=== PATIENT | male | born 1965 | race Caucasian/White ===

== ENCOUNTER 2017-06-11 09:22 | Emergency (ER) | payer SELFPAY ==
[~2017-06-11] VITALS: Ht 175.3 cm; Wt 110.0 kg
[2017-06-11 09:27] VITALS: BP 228/107; PULSE 81; RESP 16; TEMP 98.8; O2SAT 98
[2017-06-11] MEDS ORDERED: cloNIDine HCL 0.1 MG TAB PO ONE (10:00)
[2017-06-11] MEDS ORDERED: IBUP-232 PO (10:46)
--- NOTE | 2017-06-11 10:56 | PD ---
HPI . sore throat Chief Complaint: ENT Complaint Time Seen by Provider: 09:39 Travel History International Travel<30 days: No Contact w/Intl Traveler<30days: No Traveled to known affect area: No History of Present Illness HPI 51-year-old male patient presents emergency department for evaluation of sore throat 3 weeks. Patient believes he might have had a fever on the first day that his throat hurt but has been afebrile subsequently. Patient denies any ear pain, chest pain, shortness breath, abdominal pain, nausea, vomiting, diarrhea. Patient has a history of hypertension. Patient doesn't take any daily medication. PFSH Past Medical History Cardiovascular Problems: Yes (htn) Social History Tobacco Use: Yes Allergies-Medications (Allergen,Severity, Reaction): Coded Allergies: No Known Allergies (Unverified Adverse Reaction, Unknown, 06/11/17) Reported Meds & Prescriptions Reported Meds & Active Scripts Active Ibuprofen 600 Mg Tab 600 Mg PO Q8H PRN Review of Systems Except as stated in HPI: all other systems reviewed are Neg Physical Exam Narrative GENERAL: Well-nourished, well-developed 51-year-old male patient. SKIN: Focused skin assessment warm/dry. HEAD: Normocephalic. Atraumatic. EYES: No scleral icterus. No injection or drainage. ENT: Mucosa pink and moist. No erythema or exudates. No uvular edema. No uvular , palatal, or tonsillar deviation. Airway patent. Nasal turbinates appear mildly hypertrophic without nasal blood, purulent drainage or septal hematoma. THROAT: Moderate pharyngeal injection and tonsillar hypertrophy, no exudates noted. Airway is patent. NECK: Supple, trachea midline. No JVD or lymphadenopathy. CARDIOVASCULAR: Regular rate and rhythm without murmurs, gallops, or rubs. RESPIRATORY: Breath sounds equal bilaterally. No accessory muscle use. GASTROINTESTINAL: Abdomen soft, non-tender, nondistended. MUSCULOSKELETAL: No cyanosis, or edema. Data Data Last Documented VS Vital Signs Date Time Temp Pulse Resp B/P (MAP) Pulse Ox O2 Delivery O2 Flow Rate FiO2 06/11/17 11:33 06/11/17 11:29 66 20 98 Room Air 06/11/17 09:27 98.8 Orders Orders Clonidine (Catapres) (06/11/17 10:00) Ed Discharge Order (06/11/17 11:15) MDM Medical Decision Making Medical Screen Exam Complete: Yes Emergency Medical Condition: Yes Differential Diagnosis Differential diagnoses include but are not limited to pharyngitis, URI, sinuitis Narrative Course 51-year-old male patient presents emergency department for evaluation of sore throat 3 weeks. In triage patient was hypertensive. Patient states he has a history of hypertension and doesn't take any daily medication for. Patient states he rode his bike here. Patient was given clonidine by mouth. The patient became irritated stating he didn't want to stay here and that he was only here for one reason and that was his throat. Patient stated the clonidine made him feel weird like all blood pressure medicines do which is why he refuses to take them. Patient case discussed with my attending, Dr. Chatterjee and patient was discharged home with instructions to follow-up with primary care regarding blood pressure due to patient's blood pressure remaining elevated secondary to his agitation. Patient's physical exam was consistent with viral pharyngitis. Patient was discharged home with instructions for supportive care and a prescription for ibuprofen. Diagnosis Primary Impression: Pharyngitis Qualified Codes: J02.9 - Acute pharyngitis, unspecified Referrals: Primary Care Physician Patient Instructions: General Instructions, Pharyngitis (ED) Additional Instructions: Please return to emergency department if your symptoms return or worsen. Follow up with your primary care provider. Supportive care, stay hydrated, get enough rest, diet as tolerated. Tylenol as needed for pain or fever. Cepacol [id number] to help with pain. Take medications as prescribed. Take Claritin in the morning to help with nasal congestion/post nasal drip. Med/Other Pt SpecificInfo: Prescription(s) given Scripts Ibuprofen (Ibuprofen) 600 Mg Tab 600 MG PO Q8H Y for PAIN, #15 TAB 0 Refills Prov: Natalia Gusman Anita TARIQ 06/11/17 Disposition: DISCHARGE HOME Condition: Stable UzmaNatalia TARIQ Jun 11, 2017 10:56
[2017-06-11 11:29] VITALS: BP 223/115; PULSE 66; RESP 20; O2SAT 98
[2017-06-11 11:30] VITALS: BP 193/103
== END 2017-06-11 11:42 | disposition home or self-care (01) ==
LOC: NEPD 09:22
DX: J02.9 Acute pharyngitis, unspecified (principal); I10 Essential (primary) hypertension; Z72.0 Tobacco use
CPT/HCPCS: 99283